=== PATIENT | female | born 1970 | race African-American/Black ===

== ENCOUNTER 2020-03-03 09:35 | Emergency (ER) | payer OTHER ==
[~2020-03-03] VITALS: Ht 154.9 cm; Wt 54.4 kg
[~2020-03-03 09:35] MED LIST: NKM
[2020-03-03] MEDS: HYDROcodone/Acetamin 5/325 tab ORAL ONE ×2 (10:00→10:11)
[2020-03-03] MEDS ORDERED: Methocarbamol 750mg tab ORAL ONE (10:00)
[2020-03-03] MEDS ORDERED: Ketorolac 30mg Inj IM ONE (10:00)
[2020-03-03] MEDS ORDERED: IBUPROFEN600 M1 ORAL (10:07)
[2020-03-03] MEDS ORDERED: LIDODERM700 M1 TOPIC (10:07)
[2020-03-03] MEDS ORDERED: NORCO 5-325 TA1 EAC1 ORAL (10:07)
[2020-03-03] MEDS ORDERED: ROBAXIN-750750 MG PO (10:07)
--- NOTE | 2020-03-03 10:07 | Emergency Room Report ---
History of Present Illness General Chief Complaint: Neck Pain Source: Patient Present Illness HPI 49-year-old female presents with right lateral neck pain that started 2 weeks ago aggravated with movement alleviated the rest severity is moderate, intermittent no fevers no chills no numbness no tingling, no chest pain or shortness of breath, she endorses the pain is a deep ache, no dysphasia, no cough no congestion patient presents for evaluation Allergies: Coded Allergies: No Known Allergies (Unverified , 05/20/15) COVID-19 Screening Contact w/high risk pt: No Recent Travel to affected area: No Experienced COVID-19 symptoms?: No Patient History Past Medical History: see triage record Last Menstrual Period: june- Now: No Reviewed Nursing Documentation: PMH: Agreed; PSxH: Agreed Nursing Documentation-PMH Past Medical History: No History, Except For Hx Cardiac Problems: No Hx Cancer: No Hx Gastrointestinal Problems: Yes Hx Neurological Problems: No Review of Systems All Other Systems: negative except mentioned in HPI Physical Exam Vital Signs Date Time Temp Pulse Resp B/P (MAP) Pulse Ox O2 Delivery O2 Flow Rate FiO2 03/03/20 09:38 98.1 86 18 133/85 (101) 99 Room Air General Appearance: well appearing, no apparent distress Head: normocephalic, atraumatic ENT: hearing grossly normal, normal voice Neck: full range of motion, supple, tender lateral - Tenderness laterally no midline tenderness no bony tenderness Respiratory: no respiratory distress, speaking full sentences Neurologic: alert, normal gait Psychiatric: mood/affect normal Skin: no rash Medical Decision Making Diagnostic Impression: Primary Impression: Neck pain ER Course 49-year-old female presents with most likely musculoskeletal neck strain, differential diagnoses also included [employer], none of which the patient has Will provide patient with pain regimen, lidocaine patches, Robaxin disposition home with return precautions follow-up with PCP Last Vital Signs Date Time Temp Pulse Resp B/P (MAP) Pulse Ox O2 Delivery O2 Flow Rate FiO2 03/03/20 09:38 98.1 86 18 133/85 (101) 99 Room Air Disposition: HOME, SELF-CARE Condition: Stable Scripts Lidocaine Patch* (Lidoderm Patch*) 1 Each Adh..patch 1 PATCH TOPIC DAILY PRN for For Pain, #7 PATCH 0 Refills Patch(es) may remain in place for up to 12 hours in any 24-hour period. Prov: Nando Lr MD 03/03/20 Methocarbamol* (ROBAXIN-750*) 750 Mg Tablet 750 MG PO QID, #28 TAB 0 Refills Prov: Nando Lr MD 03/03/20 Ibuprofen* (MOTRIN*) 600 Mg Tablet 600 MG ORAL Q8H PRN for FOR PAIN, #30 TAB 0 Refills Prov: Nando Lr MD 03/03/20 Hydrocodone Bit/Acetaminophen 5-325* (NORCO 5-325 TABLET*) 1 Each Tablet 1 TAB ORAL Q6H PRN for FOR PAIN, #10 TAB 0 Refills Prov: Nando Lr MD 03/03/20 Referrals: [facility] Patient Instructions: Cervical Strain and Sprain With Rehab-SportsMed Additional Instructions: The patient was provided with discharge instructions, notified to follow-up with a primary care doctor and or specialist in the next 24-48 hours, and to return to the ED if they have worsening of their symptoms. Please note that this report is being documented using [employer] technology. This can lead to erroneous entry secondary to incorrect interpretation by the dictating instrument. Nando Lr MD Mar 03, 2020 10:07
--- NOTE | 2020-03-03 10:20 | NUR ---
ED Nurse Note:pt. c/o right posterior neck pain no injury reported, given PO and IM pain meds
--- NOTE | 2020-03-03 10:35 | NUR ---
ER DISCHARGE NOTE: Patient is cleared to be discharged per ERMD, pt is aox4, on room air, with stable vital signs. pt was given dc and prescription instructions, pt was able to verbalize understanding, pt is able to ambulate with steady gait. pt took all belongings.
[2020-03-03 10:39] VITALS: BP 133/85
== END 2020-03-03 10:48 | disposition home or self-care (01) ==
LOC: EMR 09:55
DX: M54.2 Cervicalgia (principal)
CPT/HCPCS: 96372; J1885; J8540; Z7502; 99283